=== PATIENT | female | born 1950 | race Caucasian/White ===

== ENCOUNTER 2021-03-29 | Outpatient (REF) | payer MEDICARE, MEDICAID, SELFPAY ==
[2021-03-29 06:38] LABS: Hematocrit 26.5 % (37-47); Hemoglobin 8.2 g/dl (12.0-16.0); Mean Corpuscular HGB Conc 30.9 g/dl (31.0-35.0); Mean Corpuscular Hemoglobin 27.7 pg (27.0-33.0); Mean Corpuscular Volume 89.5 fL (80-98); Mean Platelet Volume 10.2 fL (9.4-12.3); Platelet Count 181 X10*3/uL (160-400); Red Blood Count 2.96 X10*6/uL (4.20-5.50); Red Cell Distribution Width 14.6 % (11.0-16.0); White Blood Count 4.5 X10*3/uL (4.8-10.8)
[2021-03-29 07:02] LABS: Anion Gap 15 (12-20); Blood Urea Nitrogen 20 mg/dL (9-16); Calcium 7.9 mg/dL (8.4-10.2); Carbon Dioxide 27 mmol/L (22-29); Chloride 102 mmol/L (96-108); Estimated Glomerular Filt Rate > 60; Glucose Random 70 mg/dL (60-115); Potassium 4.7 mmol/L (3.3-5.1); Sodium 139 mmol/L (135-145)
== END 2021-03-29 00:01 | disposition home or self-care (01) ==
LOC: HO.MMNH1L
PROVIDERS: Visit Provider Family Medicine
DX: E11.9 Type 2 diabetes mellitus without complications (principal); I10 Essential (primary) hypertension; S42.309D Unspecified fracture of shaft of humerus, unspecified arm, subsequent encounter for fracture with routine healing
CPT/HCPCS: 36415; 80048; 85027

== ENCOUNTER 2021-04-04 00:19 | Outpatient (REF) | payer SELFPAY ==
[2021-04-04 06:50] LABS: Hematocrit 25.2 % (37-47); Hemoglobin 7.7 g/dl (12.0-16.0); Mean Corpuscular HGB Conc 30.6 g/dl (31.0-35.0); Mean Corpuscular Hemoglobin 27.3 pg (27.0-33.0); Mean Corpuscular Volume 89.4 fL (80-98); Mean Platelet Volume 10.3 fL (9.4-12.3); Platelet Count 212 X10*3/uL (160-400); Red Blood Count 2.82 X10*6/uL (4.20-5.50); Red Cell Distribution Width 14.6 % (11.0-16.0); White Blood Count 5.7 X10*3/uL (4.8-10.8)
[2021-04-04 07:35] LABS: Anion Gap 14 (12-20); Blood Urea Nitrogen 24 mg/dL (9-16); Calcium 8.3 mg/dL (8.4-10.2); Carbon Dioxide 29 mmol/L (22-29); Chloride 103 mmol/L (96-108); Estimated Glomerular Filt Rate > 60; Glucose Random 40 mg/dL (60-115); Potassium 3.7 mmol/L (3.3-5.1); Sodium 142 mmol/L (135-145)
== END 2021-04-04 00:20 | disposition home or self-care (01) ==
LOC: HO.MMNH1L 00:19
PROVIDERS: Visit Provider Family Medicine
DX: E11.9 Type 2 diabetes mellitus without complications (principal); I10 Essential (primary) hypertension; S42.309D Unspecified fracture of shaft of humerus, unspecified arm, subsequent encounter for fracture with routine healing
CPT/HCPCS: 36415; 80048; 85027

== ENCOUNTER 2021-04-11 00:20 | Outpatient (REF) | payer MEDICAID, SELFPAY ==
[2021-04-11 06:53] LABS: Hematocrit 23.6 % (37-47); Hemoglobin 7.2 g/dl (12.0-16.0); Mean Corpuscular HGB Conc 30.5 g/dl (31.0-35.0); Mean Corpuscular Volume 88.4 fL (80-98); Mean Platelet Volume 10.3 fL (9.4-12.3); Platelet Count 206 X10*3/uL (160-400); Red Blood Count 2.67 X10*6/uL (4.20-5.50); Red Cell Distribution Width 14.4 % (11.0-16.0); White Blood Count 5.4 X10*3/uL (4.8-10.8)
[2021-04-11 07:40] LABS: Anion Gap 13 (12-20); Blood Urea Nitrogen 16 mg/dL (9-16); Calcium 8.2 mg/dL (8.4-10.2); Carbon Dioxide 30 mmol/L (22-29); Chloride 101 mmol/L (96-108); Estimated Glomerular Filt Rate > 60; Glucose Random 74 mg/dL (60-115); Potassium 3.9 mmol/L (3.3-5.1); Sodium 140 mmol/L (135-145)
== END 2021-04-11 00:21 | disposition home or self-care (01) ==
LOC: HO.MMNH1L 00:20
PROVIDERS: Visit Provider Family Medicine
DX: E11.9 Type 2 diabetes mellitus without complications (principal); I10 Essential (primary) hypertension
CPT/HCPCS: 36415; 80048; 85027

== ENCOUNTER 2021-04-18 00:37 | Outpatient (REF) | payer MEDICARE, MEDICAID, SELFPAY ==
[2021-04-18 00:53] LABS: Appearance Urine CLOUDY; Color Urine YELLOW; Glucose Urine UA NEG (NEG); Leukocyte Esterase Urine 2+ (NEG); Nitrite Urine NEG (NEG); PH 5.5 (5.0-8.0); UACC Culture Trigger YES; Urine Blood 3+ (NEG); Urine Ketones 5 MG/DL (NEG); Urine Protein TRACE MG/DL (NEG-TRACE)
[2021-04-18 01:03] LABS: Bacteria Urine 4+ /LPF; Squamous Epithelial Cell Urine 1+ /LPF; WBC Urine TNTC /HPF (0-4)
== END 2021-04-18 00:38 | disposition home or self-care (01) ==
LOC: HO.LAB 00:37
PROVIDERS: Visit Provider Family Medicine
DX: Z13.89 Encounter for screening for other disorder (principal)
CPT/HCPCS: 81001; 87086

== ENCOUNTER 2021-04-18 08:07 | Outpatient (REF) | payer MEDICARE, MEDICAID, SELFPAY ==
[2021-04-18 07:18] LABS: Hemoglobin 7.5 g/dl (12.0-16.0); Mean Corpuscular Hemoglobin 26.8 pg (27.0-33.0); Mean Corpuscular Volume 89.3 fL (80.0-98.0); Mean Platelet Volume 10.5 fL (9.4-12.3); Platelet Count 201 X10*3/uL (160-400); Red Cell Distribution Width 15.9 % (11.0-16.0); White Blood Count 6.3 X10*3/uL (4.8-10.8)
[2021-04-18 07:41] LABS: Anion Gap 14 (12-20); Blood Urea Nitrogen 19 mg/dL (9-16); Calcium 7.7 mg/dL (8.4-10.2); Carbon Dioxide 29 mmol/L (22-29); Chloride 97 mmol/L (96-108); Estimated Glomerular Filt Rate > 60; Glucose Random 142 mg/dL (60-115); Potassium 4.3 mmol/L (3.3-5.1); Sodium 136 mmol/L (135-145)
== END 2021-04-18 08:08 | disposition home or self-care (01) ==
LOC: HO.MMNH1L 08:07
PROVIDERS: Visit Provider Family Medicine
DX: E11.9 Type 2 diabetes mellitus without complications (principal); I10 Essential (primary) hypertension; S42.309D Unspecified fracture of shaft of humerus, unspecified arm, subsequent encounter for fracture with routine healing
CPT/HCPCS: 36415; 80048; 81001; 85027; 87086; 87088; 87186

== ENCOUNTER 2021-04-25 00:55 | Outpatient (REF) | payer MEDICARE, MEDICAID, SELFPAY | END 2021-04-25 00:56 | disposition home or self-care (01) | LOC: HO.MMNH1L 00:55 | PROVIDERS: Visit Provider Family Medicine | DX: Z13.89 Encounter for screening for other disorder (principal) ==

== ENCOUNTER 2024-01-14 10:00 | Day surgery (SDC) | payer MEDICARE, MEDICAID, SELFPAY ==
[2024-01-09 11:13] VITALS: BMI 20.7
--- NOTE | 2024-01-10 13:54 | P.CONAN_ITS ---
Documented by User: Shruthi Zuleta NP 01/10/24 13:54 HPI - Anesthesia Eval Consult details Narrative: 73yo F for Right Cataract Extraction IOL Insertion No previous cataract on record [facility] Past Medical History Medical History Wheelchair dependent Ileostomy present Chronic pancreatitis Fibromyalgia KATRINA (obstructive sleep apnea) Bowel incontinence Bladder incontinence GERD (gastroesophageal reflux disease) Wheelchair dependence Multiple thyroid nodules Chronic heart failure with preserved ejection fraction (HFpEF) Hypercholesteremia History of GI bleed History of colon cancer Chronic pain syndrome 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 PVD (peripheral vascular disease) PAD (peripheral artery disease) Obesity (BMI 30.0-34.9) Peripheral neuropathy Diabetes mellitus type 2, insulin dependent Cataracts, bilateral Surgical History Surgical History History of carpal tunnel release Hx of cholecystectomy History of total abdominal hysterectomy and bilateral salpingo-oophorectomy Hx of total colectomy Social History Social History Household Members Other:: [facility] Housing Other:: [facility] Are you a primary nurse care manager to a significant other at home: No Do you presently have visiting nurse or other home services: Yes ([facility] and staff at [facility]) Patient Tobacco Use Status: Former Tobacco user Tobacco use type: Cigarette Smoked in Last 30 Days: No Use of substances other than those prescribed or required for medical reasons: No Have you been hit, kicked, punched, or otherwise hurt by someone within the past year? If so, by whom?: No Are you DNR?: No Advance Directives: No Advance Directives Information Provided: Yes Advance Directives on File: No Recently lost weight without trying: No Nutrition Risks: Surgical patient >75years Meds Allergies Allergy/AdvReac Type Severity Reaction Status Date / Time diazepam [From Valium] Allergy Severe Anaphylaxis Verified 12/27/23 15:07 cat gut suture Allergy Unknown Uncoded 12/27/23 15:07 Home Medications ?Medication ?Instructions ?Recorded ?Confirmed ?Last Taken ?Type acetaminophen 325 mg tablet 650 mg PO Q6H PRN Pain 12/27/23 01/09/24 Unknown History alprazolam 0.5 mg tablet 0.5 mg PO DAILY 12/27/23 01/09/24 Unknown History ascorbic acid (vitamin C) 500 mg 500 mg PO BID 12/27/23 01/09/24 Unknown History chewable tablet (Vitamin C) aspirin 81 mg tablet,delayed 81 mg PO DAILY 12/27/23 01/09/24 Unknown History release atorvastatin 80 mg tablet (Lipitor) 80 mg PO DAILY 12/27/23 12/27/23 Unknown History ferrous sulfate 325 mg (65 mg 325 mg PO DAILY 12/27/23 01/09/24 Unknown History iron) tablet fludrocortisone 0.1 mg tablet 0.1 mg PO DAILY 12/27/23 Unknown History furosemide 40 mg tablet 40 mg PO DAILY 12/27/23 Unknown History gabapentin 100 mg capsule 100 mg PO TID 12/27/23 01/09/24 Unknown History insulin glargine U-300 conc 300 28 unit subcut .QAM 12/27/23 01/09/24 Unknown History unit/mL (3 mL) subcutaneous pen (Toujeo Max U-300 SoloStar) insulin lispro 100 unit/mL subcut TID 12/27/23 Unknown History subcutaneous cartridge (Humalog U-100 Insulin) magnesium oxide 400 mg PO DAILY 12/27/23 01/09/24 Unknown History metformin 500 mg tablet 500 mg PO BID 12/27/23 01/09/24 Unknown History methenamine hippurate 1 gram tablet 1 g PO BID 12/27/23 Unknown History multivitamin 1 tab PO DAILY 12/27/23 01/09/24 Unknown History nitroglycerin 0.4 mg sublingual 0.4 mg sublingual Q5M PRN Chest 12/27/23 Unknown History tablet (Nitrostat) Pain olanzapine-fluoxetine 3 mg-25 mg 1 cap PO BEDTIME 12/27/23 01/09/24 Unknown History capsule ondansetron HCl 4 mg tablet 4 mg PO Q8H PRN Nausea And Vomiting 12/27/23 01/09/24 Unknown History pantoprazole 40 mg tablet,delayed 40 mg PO BID 12/27/23 01/09/24 Unknown History release Bifidobacterium infantis 4 mg 4 mg PO DAILY 01/09/24 01/09/24 Unknown History capsule (Align) albuterol sulfate 90 mcg/actuation 2 puff inhalation Q4-6H PRN 01/09/24 01/09/24 Unknown History aerosol inhaler Shortness Of Breath Or Wheezing diclofenac sodium BID PRN Pain 01/09/24 Unknown History diphenoxylate-atropine 2.5 1 tab PO BID PRN Diarrhea 01/09/24 01/09/24 Unknown History mg-0.025 mg tablet loperamide 2 mg tablet 4 mg PO BID PRN Diarrhea 01/09/24 01/09/24 Unknown History melatonin 5 mg tablet 5 mg PO BEDTIME PRN Insomnia 01/09/24 01/09/24 Unknown History oxycodone 5 mg tablet 5 mg PO BID PRN Pain 01/09/24 01/09/24 Unknown History polyethylene glycol 3350 17 8.5 g PO DAILY PRN Constipation 01/09/24 01/09/24 Unknown History gram/dose oral powder (Miralax) psyllium 1 tbsp PO DAILY 01/09/24 01/09/24 Unknown History thiamine HCl (vitamin B1) 100 mg 100 mg PO DAILY 01/09/24 01/09/24 Unknown History tablet (Vitamin B-1) Exam Height,Weight and Vital Signs: Height 5 ft 9 in Weight 63.503 kg Assessment and Plan Assessment Anesthesia Assessment: Chart Reviewed Documented by User: Angeline Roth MD 01/14/24 12:10 [facility] Past Medical History Medical History Wheelchair dependent Ileostomy present Chronic pancreatitis Fibromyalgia KATRINA (obstructive sleep apnea) Bowel incontinence Bladder incontinence GERD (gastroesophageal reflux disease) Wheelchair dependence Multiple thyroid nodules Chronic heart failure with preserved ejection fraction (HFpEF) Hypercholesteremia History of GI bleed History of colon cancer Chronic pain syndrome 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 PVD (peripheral vascular disease) PAD (peripheral artery disease) Obesity (BMI 30.0-34.9) Peripheral neuropathy Diabetes mellitus type 2, insulin dependent Cataracts, bilateral Family History Family history of problems with anesthesia: No Surgical History Surgical History History of carpal tunnel release Hx of cholecystectomy History of total abdominal hysterectomy and bilateral salpingo-oophorectomy Hx of total colectomy History of Problems with Anesthesia: No Social History Social History Household Members Other:: [facility] Housing Other:: [facility] Are you a primary nurse care manager to a significant other at home: No Do you presently have visiting nurse or other home services: Yes ([facility] and staff at [facility]) Patient Tobacco Use Status: Former Tobacco user Tobacco use type: Cigarette Smoked in Last 30 Days: No Use of substances other than those prescribed or required for medical reasons: No Have you been hit, kicked, punched, or otherwise hurt by someone within the past year? If so, by whom?: No Are you DNR?: No Advance Directives: No Advance Directives Information Provided: Yes Advance Directives on File: No Recently lost weight without trying: No Nutrition Risks: Surgical patient >75years Meds Allergies Allergy/AdvReac Type Severity Reaction Status Date / Time diazepam [From Valium] Allergy Severe Anaphylaxis Verified 12/27/23 15:07 cat gut suture Allergy Unknown Uncoded 12/27/23 15:07 Home Medications ?Medication ?Instructions ?Recorded ?Confirmed ?Last Taken ?Type acetaminophen 325 mg tablet 650 mg PO Q6H PRN Pain 12/27/23 01/09/24 Unknown History alprazolam 0.5 mg tablet 0.5 mg PO DAILY 12/27/23 01/09/24 Unknown History ascorbic acid (vitamin C) 500 mg 500 mg PO BID 12/27/23 01/09/24 Unknown History chewable tablet (Vitamin C) aspirin 81 mg tablet,delayed 81 mg PO DAILY 12/27/23 01/09/24 Unknown History release atorvastatin 80 mg tablet (Lipitor) 80 mg PO DAILY 12/27/23 12/27/23 Unknown History ferrous sulfate 325 mg (65 mg 325 mg PO DAILY 12/27/23 01/09/24 Unknown History iron) tablet fludrocortisone 0.1 mg tablet 0.1 mg PO DAILY 12/27/23 Unknown History furosemide 40 mg tablet 40 mg PO DAILY 12/27/23 Unknown History gabapentin 100 mg capsule 100 mg PO TID 12/27/23 01/09/24 Unknown History insulin glargine U-300 conc 300 28 unit subcut .QAM 12/27/23 01/09/24 Unknown History unit/mL (3 mL) subcutaneous pen (Toujeo Max U-300 SoloStar) insulin lispro 100 unit/mL subcut TID 12/27/23 Unknown History subcutaneous cartridge (Humalog U-100 Insulin) magnesium oxide 400 mg PO DAILY 12/27/23 01/09/24 Unknown History metformin 500 mg tablet 500 mg PO BID 12/27/23 01/09/24 Unknown History methenamine hippurate 1 gram tablet 1 g PO BID 12/27/23 Unknown History multivitamin 1 tab PO DAILY 12/27/23 01/09/24 Unknown History nitroglycerin 0.4 mg sublingual 0.4 mg sublingual Q5M PRN Chest 12/27/23 Unknown History tablet (Nitrostat) Pain olanzapine-fluoxetine 3 mg-25 mg 1 cap PO BEDTIME 12/27/23 01/09/24 Unknown History capsule ondansetron HCl 4 mg tablet 4 mg PO Q8H PRN Nausea And Vomiting 12/27/23 01/09/24 Unknown History pantoprazole 40 mg tablet,delayed 40 mg PO BID 12/27/23 01/09/24 Unknown History release Bifidobacterium infantis 4 mg 4 mg PO DAILY 01/09/24 01/09/24 Unknown History capsule (Align) albuterol sulfate 90 mcg/actuation 2 puff inhalation Q4-6H PRN 01/09/24 01/09/24 Unknown History aerosol inhaler Shortness Of Breath Or Wheezing diclofenac sodium BID PRN Pain 01/09/24 Unknown History diphenoxylate-atropine 2.5 1 tab PO BID PRN Diarrhea 01/09/24 01/09/24 Unknown History mg-0.025 mg tablet loperamide 2 mg tablet 4 mg PO BID PRN Diarrhea 01/09/24 01/09/24 Unknown History melatonin 5 mg tablet 5 mg PO BEDTIME PRN Insomnia 01/09/24 01/09/24 Unknown History oxycodone 5 mg tablet 5 mg PO BID PRN Pain 01/09/24 01/09/24 Unknown History polyethylene glycol 3350 17 8.5 g PO DAILY PRN Constipation 01/09/24 01/09/24 Unknown History gram/dose oral powder (Miralax) psyllium 1 tbsp PO DAILY 01/09/24 01/09/24 Unknown History thiamine HCl (vitamin B1) 100 mg 100 mg PO DAILY 01/09/24 01/09/24 Unknown History tablet (Vitamin B-1) Exam Airway Mallampati Class: II TM Dist: >3cm Neck ROM: Limited Heart: rrr Lungs: cta Assessment and Plan Assessment Anesthesia Assessment: Anesthesia Plan Discussed Final Anesthetic Review Family History of Problems with Anesthesia: No History of Problems with Anesthesia: No NPO: Yes ASA Class: III Final Preanesthetic Review: No Changes in Pt Med Stat, Meds/Allgs Chart Reviewed, Consent Obtained/Reviewed and Anes Risks/Benef Reviewed Patient Risk: Intermediate Procedure Risk: Low Anesthetic Plan Anesthetic Plan: MAC: Disposition: Standard PACU
[2024-01-14 12:10] LABS: Glucose, Whole Blood 116 mg/dL (60-115)
[2024-01-14] MEDS: Tetracaine HCl/PF 0.5% Oph Sol 4 ML DROPS 1 DROP EYE-RIGHT (12:26)
[2024-01-14] MEDS: Phenylephrine HCL 2.5% Oph SoL 2 ML BOTTLE 1 DROP EYE-RIGHT ×3 (12:27→12:40)
[2024-01-14] MEDS: Ketorolac Tromethamine 0.5% Op 10 ML DROPS 1 DROP EYE-RIGHT ×3 (12:27→12:40)
[2024-01-14] MEDS: Tropicamide 1 % Ophth Sol 3 ML BTL 1 DROP EYE-RIGHT ×3 (12:28→12:41)
[2024-01-14] MEDS: Cyclopentolate 1 % Ophth Sol 2 ML DRPBTL 1 DROP EYE-RIGHT ×3 (12:28→12:40)
--- NOTE | 2024-01-14 12:34 | P.PCNO_ITS ---
Ophthalmology Procedure Procedure Date of Service: 01/14/24 Ophthalmology Viscoelastic: Healon Duet Dual Pack Pro Ophthalmology Lenses: IOL Acrysof MP - MA60AC (20.5) Procedure Notes: PREOPERATIVE DIAGNOSIS: Decreased visual acuity right eye secondary to cataract POSTOPERATIVE DIAGNOSIS: Same PROCEDURE: Right cataract extraction with intraocular lens insertion SURGEON: Ashish Esposito M.D. ANESTHESIA: Topical/MAC ESTIMATED BLOOD LOSS: None COMPLICATIONS: None After obtaining informed consent, the patient was brought to the operating room suite and placed in the supine position. After adequate sedation per anesthesia, topical drops of Tetracaine were given to the right eye. The eye was then prepped and draped in the usual sterile fashion. The operating room microscope was then positioned over the operative eye and a lid speculum placed. A paracentesis was created. Viscoelastic was then instilled into the anterior chamber. A three plane incision was then created temporally, utilizing a 2.85 mm keratome. Capsulotomy forceps were then utilized to create a circular tear capsulotomy. Hydrodissection and hydrodelineation were carried out until adequate mobilization of the nucleus occurred. Phacoemulsification was then utilized to remove the dense central nu cleus followed by removal of the cortical material utilizing the automated aspiration irrigation unit. Viscoelastic was instilled into the posterior capsular bag followed by placement of a posterior chamber intraocular lens without difficulty. The residual Viscoelastic was then removed utilizing the automated IA machine. The wound was checked and found to be watertight. The patient tolerated the procedure well and the lid speculum was removed. Intracameral injection of Vigamox 0.1 mL followed by a subtenon injection of Kenalog-40 0.2 mL were administered. The patient will be seen in the a.m.
--- NOTE | 2024-01-14 12:34 | MHC.SHP ---
Pre-Procedural Eval Section A - 24 Hr Update-Section A only Date of Service: 01/14/24 The patient is an INPATIENT: No Changes since office visit: No Cold of Flu in the past 2 weeks, No New Medical Problems, No Changes in Medication and No Patient answered all questions The patient has been examined within 24 hours of the surgical procedure. The History & Physical has been completed within 30 days and I have reviewed it.: Yes Section B - Complete if H&P > 30 days Chief Complaint: Age-related nuclear cataract, right eye Allergies: Allergies Allergy/AdvReac Type Severity Reaction Status Date / Time diazepam [From Valium] Allergy Severe Anaphylaxis Verified 12/27/23 15:07 cat gut suture Allergy Unknown Uncoded 12/27/23 15:07 Plan Diagnosis/Plan: Unchanged I have reviewed the history and physical and performed a pertinent physical examination on my patient. No changes have occurred unless specified. Time Spent With Patient Time: Total time managing care of this patient today ____ minutes.
[2024-01-14 13:06] VITALS: BP 125/46; PULSE 74; RESP 18; TEMP 36.6; O2SAT 97
== END 2024-01-14 13:31 | disposition home or self-care (01) ==
PROVIDERS: PCP Pediatrics; Visit Provider Ophthalmology
PROC: (CPT 66985; principal; 2024-01-14 12:40)
DX: H25.11 Age-related nuclear cataract, right eye (principal); H52.4 Presbyopia; Z83.511 Family history of glaucoma; H18.413 Arcus senilis, bilateral; E11.9 Type 2 diabetes mellitus without complications; Z85.038 Personal history of other malignant neoplasm of large intestine; Z90.49 Acquired absence of other specified parts of digestive tract; G47.33 Obstructive sleep apnea (adult) (pediatric); G89.29 Other chronic pain; Z79.4 Long term (current) use of insulin; Z79.84 Long term (current) use of oral hypoglycemic drugs; Z79.899 Other long term (current) drug therapy; Z88.8 Allergy status to other drugs, medicaments and biological substances; Z87.891 Personal history of nicotine dependence
CPT/HCPCS: 66984; 82947; J2250; J3010; J3301; V2630

== ENCOUNTER 2024-04-14 07:22 | Day surgery (SDC) | payer MEDICARE, MEDICAID, SELFPAY ==
[2024-04-14 08:17] VITALS: BMI 21.6
[2024-04-14 08:18] VITALS: BP 146/51; PULSE 92; RESP 16; TEMP 36.4; O2SAT 96
[2024-04-14] MEDS: Tetracaine HCl/PF 0.5% Oph Sol 4 ML DROPS 1 DROP EYE-LEFT (08:23)
[2024-04-14] MEDS: Phenylephrine HCL 2.5% Oph SoL 2 ML BOTTLE 1 DROP EYE-LEFT ×3 (08:25→09:00)
[2024-04-14] MEDS: Ketorolac Tromethamine 0.5% Op 10 ML DROPS 1 DROP EYE-LEFT ×3 (08:27→09:02)
[2024-04-14 08:29] LABS: Glucose, Whole Blood 257 mg/dL (60-115)
[2024-04-14] MEDS: Tropicamide 1 % Ophth Sol 3 ML BTL 1 DROP EYE-LEFT ×3 (08:31→09:04)
[2024-04-14] MEDS: Cyclopentolate 1 % Ophth Sol 2 ML DRPBTL 1 DROP EYE-LEFT ×3 (08:34→09:06)
--- NOTE | 2024-04-14 09:06 | MHC.SHP ---
Pre-Procedural Eval Section A - 24 Hr Update-Section A only Date of Service: 04/14/24 The patient is an INPATIENT: No Changes since office visit: No Cold of Flu in the past 2 weeks, No New Medical Problems, No Changes in Medication and No Patient answered all questions The patient has been examined within 24 hours of the surgical procedure. The History & Physical has been completed within 30 days and I have reviewed it.: Yes Section B - Complete if H&P > 30 days Chief Complaint: Age-related nuclear cataract, left eye Allergies: Allergies Allergy/AdvReac Type Severity Reaction Status Date / Time diazepam [From Valium] Allergy Severe Anaphylaxis Verified 01/14/24 14:05 cat gut suture Allergy Unknown Uncoded 01/14/24 14:05 Plan Diagnosis/Plan: Unchanged I have reviewed the history and physical and performed a pertinent physical examination on my patient. No changes have occurred unless specified. Time Spent With Patient Time: Total time managing care of this patient today ____ minutes.
--- NOTE | 2024-04-14 09:07 | HO.PNOPHT ---
Ophthalmology Procedure Procedure Date of Service: 04/14/24 Ophthalmology Viscoelastic: Healon Duet Dual Pack Pro Ophthalmology Lenses: IOL Acrysof MP - MA60AC (20) Procedure Notes: PREOPERATIVE DIAGNOSIS: Decreased visual acuity left eye secondary to cataract POSTOPERATIVE DIAGNOSIS: Same PROCEDURE: Left cataract extraction with intraocular lens insertion SURGEON: Ashish Esposito M.D. ANESTHESIA: Topical/MAC ESTIMATED BLOOD LOSS: None COMPLICATIONS: None After obtaining informed consent, the patient was brought to the operation room suite and placed in the supine position. After adequate sedation per anesthesia, topical drops of Tetracaine were given to the left eye. The eye was then prepped and draped in the usual sterile fashion. The operating room microscope was then positioned over the operative eye and a lid speculum placed. A paracentesis was created. Air bubble was instilled followed by visu blue dye due to lack of red relex from dense cataract. Viscoelastic was then instilled into the anterior chamber. A three plane incision was then created temporally, utilizing a 2.85 mm keratome. Capsulotomy forceps were then utilized to create a circular tear capsulotomy. Hydrodissection and hydrodelineation were carried out until adequate mobilization of the nucleus occurred. Phacoemulsification was then utilized to remove the dense central nucleus followed by removal of the cortical material utilizing the automated aspiration irrigation unit. Viscoat elastic was instilled into the posterior capsular bag followed by placement of a posterior chamber intraocular lens without difficulty. The residual Viscoat elastic was then removed utilizing the automated IA machine. The wound was check and found to be watertight. The patient tolerated the procedure well and the lid speculum was removed. Intracameral injection of Vigamox 0.1 mL followed by a subtenon injection of Kenalog-40 0.2 mL were administered. The patient will be seen in the a.m.
--- NOTE | 2024-04-14 09:08 | P.CONAN_ITS ---
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 PVD (peripheral vascular disease) PAD (peripheral artery disease) Obesity (BMI 30.0-34.9) Peripheral neuropathy Diabetes mellitus type 2, insulin dependent Cataracts, bilateral Family History Family history of problems with anesthesia: No Surgical History Surgical History (Updated 01/25/24 @ 09:28 by Naa De La Paz, RN) Hx of right cataract extraction (01/14/24) History of carpal tunnel release Hx of cholecystectomy History of total abdominal hysterectomy and bilateral salpingo-oophorectomy Hx of total colectomy History of Problems with Anesthesia: No Social History Social History (Updated 04/08/24 @ 16:06 by Naa De La Paz, SUSANNAH) Household Members Other:: Residential Housing Other:: Residential Are you a primary childbirth and infant care teacher to a significant other at home: No Do you presently have visiting nurse or other home services: Yes ([facility] and staff at [facility]) Patient Tobacco Use Status: Former Tobacco user Tobacco use type: Cigarette Use of substances other than those prescribed or required for medical reasons: No Advance Directives: No Advance Directives Information Provided: Yes Meds Allergies Allergy/AdvReac Type Severity Reaction Status Date / Time diazepam [From Valium] Allergy Severe Anaphylaxis Verified 01/14/24 14:05 cat gut suture Allergy Unknown Uncoded 01/14/24 14:05 Active Medications: Current Medications Naloxone HCl (Naloxone Hcl 0.4 Mg/Ml Vial) 0.04 mg IVPUSH Q5M PRN PRN Reason: Excessive sedation or RR < 8 Povidone Iodine (Povidone Iodine 5 % Ophth Soln 30 Ml Bottle) 1 appl EYE-LEFT PREOP PRN PRN Reason: Pre-Op Surgical Implant Prophy Home Medications ?Medication ?Instructions ?Recorded ?Confirmed ?Last Taken ?Type acetaminophen 325 mg tablet 650 mg PO Q8H PRN Pain 12/27/23 04/08/24 Unknown History alprazolam 0.5 mg tablet 0.5 mg PO BEDTIME PRN Sleep 12/27/23 04/08/24 Unknown History ascorbic acid (vitamin C) 500 mg 500 mg PO BID 12/27/23 04/08/24 Unknown History chewable tablet (Vitamin C) aspirin 81 mg tablet,delayed 81 mg PO DAILY 12/27/23 04/08/24 Unknown History release atorvastatin 80 mg tablet (Lipitor) 80 mg PO DAILY 12/27/23 04/08/24 Unknown History ferrous sulfate 325 mg (65 mg 325 mg PO BID 12/27/23 04/08/24 Unknown History iron) tablet fludrocortisone 0.1 mg tablet 0.1 mg PO DAILY 12/27/23 04/08/24 Unknown History furosemide 40 mg tablet 40 mg PO DAILY 12/27/23 04/08/24 Unknown History gabapentin 100 mg capsule 100 mg PO TID 12/27/23 04/08/24 Unknown History insulin glargine U-300 conc 300 28 - 30 unit subcut BEDTIME 12/27/23 04/08/24 Unknown History unit/mL (3 mL) subcutaneous pen (Toujeo Max U-300 SoloStar) insulin lispro 100 unit/mL subcut TID 12/27/23 Unknown History subcutaneous cartridge (Humalog U-100 Insulin) magnesium oxide 400 mg PO DAILY 12/27/23 04/08/24 Unknown History metformin 500 mg tablet 500 mg PO BID 12/27/23 04/08/24 Unknown History methenamine hippurate 1 gram tablet 1 g PO BID 12/27/23 04/08/24 Unknown History multivitamin 1 tab PO DAILY 12/27/23 04/08/24 Unknown History nitroglycerin 0.4 mg sublingual 0.4 mg sublingual Q5M PRN Chest 12/27/23 04/08/24 Unknown History tablet (Nitrostat) Pain olanzapine-fluoxetine 3 mg-25 mg 1 cap PO BEDTIME 12/27/23 04/08/24 Unknown History capsule ondansetron HCl 4 mg tablet 4 mg PO Q8H PRN Nausea And Vomiting 12/27/23 04/08/24 Unknown History albuterol sulfate 90 mcg/actuation 2 puff inhalation Q4-6H PRN 01/09/24 04/08/24 Unknown History aerosol inhaler Shortness Of Breath Or Wheezing diclofenac sodium 4 g topical BID PRN Pain 01/09/24 04/08/24 Unknown History diphenoxylate-atropine 2.5 1 tab PO BID PRN Diarrhea 01/09/24 01/09/24 Unknown History mg-0.025 mg tablet loperamide 2 mg tablet 4 mg PO BID PRN Diarrhea 01/09/24 04/08/24 Unknown History melatonin 5 mg tablet 5 mg PO BEDTIME PRN Insomnia 01/09/24 01/09/24 Unknown History oxycodone 5 mg tablet 5 mg PO BID PRN Pain 01/09/24 04/08/24 Unknown History polyethylene glycol 3350 17 8.5 g PO DAILY PRN Constipation 01/09/24 01/09/24 Unknown History gram/dose oral powder (Miralax) psyllium 1 tbsp PO DAILY 01/09/24 01/09/24 Unknown History thiamine HCl (vitamin B1) 100 mg 100 mg PO DAILY 01/09/24 04/08/24 Unknown History tablet (Vitamin B-1) Bifidobacterium infantis 4 mg 4 mg PO DAILY 04/08/24 04/08/24 Unknown History capsule (Align) magnesium hydroxide 400 mg/5 mL 400 mg PO BEDTIME PRN Diarrhea 04/08/24 04/08/24 Unknown History oral suspension (Milk of Magnesia) metoprolol succinate 25 mg 25 mg PO DAILY 04/08/24 04/08/24 Unknown History tablet,extended release 24 hr omeprazole 20 mg capsule,delayed 20 mg PO BID 04/08/24 04/09/24 Unknown History release oxybutynin chloride 5 mg tablet 5 mg PO DAILY 04/08/24 04/08/24 Unknown History Exam Height,Weight and Vital Signs: Height 5 ft 9 in Weight 66.224 kg Last Vital Signs Temp 97.5 F 04/14/24 08:18 Pulse 92 04/14/24 08:18 Resp 16 04/14/24 08:18 BP 146/51 H 04/14/24 08:18 Pulse Ox 96 04/14/24 08:18 O2 Del Method Room Air 04/14/24 08:18 Pertinent Lab Results Pertinent Lab Results: Laboratory Tests 04/14/24 08:26 POC Glucose 257 H Airway Mallampati Class: II TM Dist: >3cm Neck ROM: Full Heart: rrr Lungs: cta Assessment and Plan Assessment Anesthesia Assessment: Anesthesia Plan Discussed and Chart Reviewed Final Anesthetic Review Family History of Problems with Anesthesia: No History of Problems with Anesthesia: No NPO: Yes ASA Class: III Final Preanesthetic Review: No Changes in Pt Med Stat, Meds/Allgs Chart Reviewed and Consent Obtained/Reviewed Patient Risk: Low Procedure Risk: Low Anesthetic Plan Anesthetic Plan: MAC: Disposition: Standard PACU
[2024-04-14 09:46] VITALS: BP 168/63; PULSE 78; RESP 15; TEMP 36.4; O2SAT 99
== END 2024-04-14 11:05 | disposition home or self-care (01) ==
PROVIDERS: PCP Pediatrics; Visit Provider Ophthalmology
PROC: (CPT 66985; principal; 2024-04-14 09:00)
DX: H25.012 Cortical age-related cataract, left eye (principal); H52.4 Presbyopia; Z83.511 Family history of glaucoma; H40.013 Open angle with borderline findings, low risk, bilateral; H18.413 Arcus senilis, bilateral; E11.40 Type 2 diabetes mellitus with diabetic neuropathy, unspecified; Z85.038 Personal history of other malignant neoplasm of large intestine; Z93.3 Colostomy status; Z90.49 Acquired absence of other specified parts of digestive tract; Z85.43 Personal history of malignant neoplasm of ovary; E78.00 Pure hypercholesterolemia, unspecified; G89.4 Chronic pain syndrome; Z79.4 Long term (current) use of insulin; Z79.84 Long term (current) use of oral hypoglycemic drugs; Z79.82 Long term (current) use of aspirin; Z79.899 Other long term (current) drug therapy; Z88.8 Allergy status to other drugs, medicaments and biological substances; Z87.891 Personal history of nicotine dependence
CPT/HCPCS: 66984; 82947; J2250; J3301; V2630